=== PATIENT | female | born 1960 | race Caucasian/White ===

== ENCOUNTER 2017-01-23 20:45 | Emergency (ER) | payer BC ==
--- NOTE | ~2017-01-23 | ER ---
PATIENT'S NAME: [facility] AGE: 56 Y [address] ROOM: [place] [address] LOCATION: [facility] ADMIT DATE: 01/23/2017 ER/Outpatient Report DISCHARGE DATE: 01/23/2017 FAMILY PHYSICIAN: PHYSICIAN, NO ATTENDING PHYSICIAN: Mauro Bolivar Time of patient's arrival: 5 hours. Time of patient's evaluation: 5 hours. CHIEF COMPLAINT: Left knee injury. HISTORY OF PRESENT ILLNESS: This is a 56-year-old female, who presents to the ER, who states that she has been having troubles with her knee for the past couple of days. She has kind of been aching and approximately 1.5 hours prior to arrival, she was bending over to turn the faucet off on her house and she stepped back on her legs and her knee gave out and she is having significant pain to the posterior aspect of her left knee. She states that she fell a popping sensation to it. She has never had anything like this before. She denies any other injury at this time. ALLERGIES: NO KNOWN ALLERGIES. MEDICATIONS: Please see medication list in nurse's notes. PAST MEDICAL HISTORY: She has had a PE in the past. PAST SURGICAL HISTORY: and hysterectomy. SOCIAL HISTORY: Drinks alcohol occasionally. Denies any smoking use. REVIEW OF SYSTEMS: CONSTITUTIONAL: Denies any change in weight or fatigue. MUSCULOSKELETAL: She is complaining of left knee pain. HEME: No easy bruising or bleeding. SKIN: No lesions or rashes. PHYSICAL EXAMINATION: VITAL SIGNS: Weight 109.9 kg taken, blood pressure is 158/96, pulse 78, PATIENT'S NAME: [facility] AGE: 56 Y [address] ROOM: [place] [address] LOCATION: [facility] ADMIT DATE: 01/23/2017 ER/Outpatient Report DISCHARGE DATE: 01/23/2017 FAMILY PHYSICIAN: PHYSICIAN, FILIPE ATTENDING PHYSICIAN: Mauro Bolivar respirations 16, temperature 98 degrees tympanically, saturations 98% on room air. [place] Coma Score is 15. GENERAL: Alert, calm, well-developed female, in mild distress. EXTREMITIES: No clubbing or cyanosis. She does have significant pain to the posterior aspect of her left knee. The patient does have decreased range of motion of her left knee secondary to pain. She has no tenderness over the medial, lateral, or anterior aspects of her knee. She has full range of motion of all limbs. NEUROLOGIC: Cranial nerves II through XII grossly intact. Gait was not observed. LABORATORY DATA: None were done. X-RAYS: X-rays of the left knee showed no obvious fracture. IMPRESSION: Left knee injury. ASSESSMENT AND PLAN: Her knee braces did not work, so we placed her an Tahir wrap for support. We will have her non-weight bear with crutches, may touch toe if needed. We did give her 2 [place] here in the emergency room for pain and we will dismiss her home with a prescription for [place] to use as directed. She may alternate her pain medication with ibuprofen. She has iced and elevate the leg and she needs to follow up and call for an appointment with her Orthopedic of choice tomorrow. The patient understands and agrees with care. JULY GREER PA-C FOR MD DOMINIC CAMARENA/dar /[id number] d: t: 01/26/17 1215, OUTPATIENT REPORT
== END 2017-01-23 21:53 | disposition disaster alternative care site (69) ==
LOC: GACC 20:45
DX: S89.92XA Unspecified injury of left lower leg, initial encounter (principal); Z90.710 Acquired absence of both cervix and uterus; Z86.711 Personal history of pulmonary embolism; Z79.1 Long term (current) use of non-steroidal anti-inflammatories (NSAID); X50.0XXA Overexertion from strenuous movement or load, initial encounter

== ENCOUNTER → 2017-01-24 | Outpatient (CLI) | payer BC ==
--- NOTE | ~2017-01-24 | ENPV ---
Vascular Lower Extremities DVT Study Procedure Demographics Patient Name FRANKIE SHIELDS Date of Study 01/24/2017 Patient Number [id number] Gender Female Date of 1960 Age 56 Visit Number [id number] Height 66 Accession Number [id number] Weight 250.01 Referring Arely Joyce MD Interpreting Jimi Teague MD Physician Physician Physician Ordering Physician Dismantler Process Control Operator Liliana Parker RDCS, RVT Arturo Martin BS, RT Conclusions Summary There is sub-acute deep vein thrombosis in the left popliteal vein. Procedure Type of Study: Veins:Lower Extremities DVT Study, Lower Extremity Left. Indications for Study:Pain in Limb. Appropriate Use Criteria:9 Patient Status:Routine. Study Location:Vascular Lab. Technical Quality:Good visualization. Velocities are measured in cm/s ; Diameters are measured in cm Right Lower Extremities DVT Study Measurements Right 2D and Doppler Measurements + + + + +------+------+ + !Location !Visualized!Compressibility!Thrombosis!Signal!Reflux!Reflux ! ! ! ! ! ! ! !(sec) ! + + + + +------+------+ + !Common !Yes !Yes !None !Phasic! ! ! !Femoral ! ! ! ! ! ! ! + + + + +------+------+ + Left Lower Extremities DVT Study Measurements Left 2D and Doppler Measurements + + + + +------+------+ + !Location !Visualized!Compressibility!Thrombosis!Signal!Reflux!Reflux ! ! ! ! ! ! ! !(sec) ! + + + + +------+------+ + !GSV Thigh !Yes !Yes !None !Phasic! ! ! + + + + +------+------+ + !Common !Yes !Yes !None !Phasic! ! ! !Femoral ! ! ! ! ! ! ! + + + + +------+------+ + !Prox !Yes !Yes !None !Phasic! ! ! !Femoral ! ! ! ! ! ! ! + + + + +------+------+ + !Mid Femoral!Yes !Yes !None !Phasic! ! ! + + + + +------+------+ + !Dist !Yes !Yes !None !Phasic! ! ! !Femoral ! ! ! ! ! ! ! + + + + +------+------+ + !Popliteal !Yes !Partial !None !Phasic! ! ! + + + + +------+------+ + !Gastroc !Yes !Yes !None !Phasic! ! ! + + + + +------+------+ + !PTV !No !Partial !None !Phasic! ! ! + + + + +------+------+ + !Peroneal !No !Partial !None !Phasic! ! ! + + + + +------+------+ + Impressions Right Impression No DVT on comparison. Left Impression DVT in pop. Signature dtt: IAIN JEROME dtd: 01/24/17 1550 Physician Self Edit
== END | disposition disaster alternative care site (69) ==
LOC: GCAR 15:27
DX: M25.562 Pain in left knee (principal); I82.432 Acute embolism and thrombosis of left popliteal vein